=== PATIENT | female | born 1985 | race Caucasian/White ===

== ENCOUNTER 2017-04-07 09:54 | Day surgery (SDC) | payer OTHER ==
[~2017-04-07] VITALS: Ht 170.2 cm; Wt 171.0 kg
[2017-04-07] MEDS ORDERED: METFORMIN HCL500 MG PO (10:35)
[2017-04-07] MEDS ORDERED: AMARYL4 MG PO (10:37)
[2017-04-07] MEDS ORDERED: ATIVAN1 MG PO (10:37)
[2017-04-07] MEDS ORDERED: LAMOTRIGINE100 MG PO (10:38)
[2017-04-07] MEDS ORDERED: MOTRIN600 MG PO (10:39)
[2017-04-07] MEDS ORDERED: CELEXA40 MG PO (10:39)
[2017-04-07 10:44] LABS: POINT-OF-CARE METER ID UU13113694
[2017-04-07 15:36] LABS: INTERNAL CONTROL VALID? YES
== END 2017-04-07 11:53 | disposition home or self-care (01) ==
LOC: PAIN 09:54 → SDC 13:30 → PAIN 13:30
PROVIDERS: Anesthesiology; Anesthesiology Pain Medicine
DX: M54.16 Radiculopathy, lumbar region (principal); E66.01 Morbid (severe) obesity due to excess calories; F41.8 Other specified anxiety disorders; E11.65 Type 2 diabetes mellitus with hyperglycemia; R03.0 Elevated blood-pressure reading, without diagnosis of hypertension; F39 Unspecified mood [affective] disorder; Z79.899 Other long term (current) drug therapy; Z79.84 Long term (current) use of oral hypoglycemic drugs; Z72.0 Tobacco use
CPT/HCPCS: 82948; 84703; J1100; J2250; J3010

== ENCOUNTER 2018-05-01 05:15 | Day surgery (SDC) | payer OTHER ==
[~2018-05-01] VITALS: Ht 170.2 cm; Wt 168.2 kg
[~2018-05-01 05:15] MED LIST: AMARYL4 MG PO; ATIVAN1 MG PO; CELEXA40 MG PO; JARDIANCE10 MG PO; LAMOTRIGINE100 MG PO; METFORMIN HCL500 MG PO; MOTRIN600 MG PO; TRULICITY1.5 MG/0.5 SC; VITAMIN D31000 UNIT PO; ZESTRIL20 MG PO
[2018-05-01 05:58] VITALS: BP 125/66
[2018-05-01 10:25] VITALS: BP 121/60
[2018-05-01 11:25] VITALS: BP 115/59
[2018-05-01 12:01] VITALS: BP 117/59
== END 2018-05-01 11:55 | disposition home or self-care (01) ==
LOC: SDC 05:15
PROVIDERS: Obstetrics & Gynecology
DX: N91.1 Secondary amenorrhea (principal); N85.01 Benign endometrial hyperplasia; N84.0 Polyp of corpus uteri; R93.8 Abnormal findings on diagnostic imaging of other specified body structures; E66.01 Morbid (severe) obesity due to excess calories; Z68.43 Body mass index [BMI] 50.0-59.9, adult; R53.82 Chronic fatigue, unspecified; E11.65 Type 2 diabetes mellitus with hyperglycemia; I10 Essential (primary) hypertension; M54.16 Radiculopathy, lumbar region; L68.0 Hirsutism; E55.9 Vitamin D deficiency, unspecified; Z80.3 Family history of malignant neoplasm of breast; Z80.1 Family history of malignant neoplasm of trachea, bronchus and lung; Z82.49 Family history of ischemic heart disease and other diseases of the circulatory system; Z83.3 Family history of diabetes mellitus; Z82.3 Family history of stroke; Z79.84 Long term (current) use of oral hypoglycemic drugs
CPT/HCPCS: 82948; 88305; J0330; J1100; J1170; J1885; J2250; J2405; J2710; J3010; J7643